=== PATIENT | male | born 1995 | race African-American/Black ===

== ENCOUNTER 2018-07-15 16:26 | Emergency (ER) | payer OTHER ==
[~2018-07-15] VITALS: Ht 185.4 cm; Wt 88.9 kg
[2018-07-15 16:30] VITALS: BP 138/78
--- NOTE | 2018-07-15 16:54 | Emergency Room Report ---
History of Present Illness General Chief Complaint: General Complaint Source: Patient Present Illness HPI 23-year-old male presents to the emergency department requesting full STD examination. Patient denies symptoms at this time he denies penile discharge, testicular pain or swelling, external genital lesions, dysuria, swollen tender lymph nodes, fevers, chills or abdominal pain. Patient states that he has a new partner and wants to be checked prior to initiating intercourse. Allergies: Coded Allergies: No Known Allergies (Unverified , 07/15/18) Patient History Past Medical History: see triage record Past Surgical History: none Pertinent Family History: none Reviewed Nursing Documentation: PMH: Agreed; PSxH: Agreed Nursing Documentation-PMH Past Medical History: No Stated History Review of Systems All Other Systems: negative except mentioned in HPI Physical Exam Vital Signs Date Time Temp Pulse Resp B/P (MAP) Pulse Ox O2 Delivery O2 Flow Rate FiO2 07/15/18 16:30 14 138/78 99 Room Air 07/15/18 16:30 98.5 83 98.4 Sp02 EP Interpretation: reviewed, normal General Appearance: no apparent distress, alert, GCS 15, non-toxic Head: normocephalic, atraumatic ENT: hearing grossly normal, normal voice Neck: full range of motion Respiratory: lungs clear, normal breath sounds, speaking full sentences Cardiovascular #1: regular rate, rhythm Gastrointestinal: non tender, soft Musculoskeletal: gait/station normal, normal range of motion Neurologic: alert, oriented x3, responsive, motor strength/tone normal, sensory intact, normal gait, speech normal, grossly normal Psychiatric: judgement/insight normal Skin: normal color, no rash, warm/dry, well hydrated Medical Decision Making PA Attestation Dr. Michel is my supervising Physician whom patient management has been discussed with. Diagnostic Impression: Primary Impression: Encounter for medical screening examination ER Course 23-year-old male presents to the emergency department requesting full STD examination. Patient denies symptoms at this time he denies penile discharge, testicular pain or swelling, external genital lesions, dysuria, swollen tender lymph nodes, fevers, chills or abdominal pain. Patient states that he has a new partner and wants to be checked prior to initiating intercourse. Ddx considered but are not limited to Urethritis, D&C,/STI, rash, epididymitis , UTI just to name a few Vital signs: are WNL, pt. is afebrile H&PE are most consistent with nonemergent or urgent request for full STD examination wall asymptomatic.No acute injury or disease noted at this time. pt. is NAD, NON-toxic in appearance. ORDERS: none required at this time. ED INTERVENTIONS: Discussed with this patient that in the emergency department we treat prophylactically for STDs we do not perform completely STD testing as these tests are typically send-outs. Recommend patient to be evaluated at STD clinic. Pt. is stable for close outpatient follow up. -he was given list of local STD clinics. DISCHARGE: At this time pt. is stable for d/c to home. Will provide printed patient care instructions, and any necessary prescriptions. Care plan and follow up instructions have been discussed with the patient prior to discharge. Last Vital Signs Date Time Temp Pulse Resp B/P (MAP) Pulse Ox O2 Delivery O2 Flow Rate FiO2 07/15/18 16:30 98.5 83 14 138/78 99 Room Air 98.4 Disposition: HOME, SELF-CARE Condition: Stable Patient Instructions: Medical Screening Exam Additional Instructions: Please see attached STD clinic resource info Follow up with a Primary Care Provider in 3-5 days, even if your symptoms have resolved. --Please review list of primary care clinics, if you do not already have a primary care provider - Please note that this Emergency Department Report was dictated using [employer] therapist technology software, occasionally this can lead to erroneous entry secondary to interpretation by the dictation equipment. Clau Kenae Jul 15, 2018 16:54
[2018-07-15 17:00] VITALS: BP 138/78
== END 2018-07-15 17:01 | disposition home or self-care (01) ==
LOC: EMR 17:00
DX: Z11.3 Encounter for screening for infections with a predominantly sexual mode of transmission (principal)
CPT/HCPCS: 99282